=== PATIENT | female | born 1945 | race Caucasian/White ===

== ENCOUNTER 2024-04-09 10:53 | Emergency (ER) | payer MEDICARE, OTHER ==
[~2024-04-09] VITALS: Ht 167.6 cm; Wt 80.0 kg
[2024-04-09] MEDS: HYDROcodone-ACET 10/325MG TAB PO ONE (12:15)
[2024-04-09 12:18] VITALS: PULSE 83; RESP 13; O2SAT 95
[2024-04-09 12:33] LABS: Urine Bacteria FEW /hpf (None Seen); Urine Blood Negative /uL (Negative); Urine Clarity Clear (Clear); Urine Protein, UAD Negative (Negative); Urine Specific Gravity 1.006 (1.001-1.035); Urine Urobilinogen Normal (Negative); Urine WBC 1 /hpf (0 - 5); Urine pH 6.5 (5.0-9.0)
[2024-04-09 12:34] LABS: Urine Color Light Yellow (Yellow)
[2024-04-09] MEDS ORDERED: ZOFR4T PO (13:33)
[2024-04-09] MEDS ORDERED: HYDR-4902 PO (13:33)
[2024-04-09 15:24] VITALS: BP 153/87; PULSE 80; RESP 20; TEMP 98.4; O2SAT 96
== END 2024-04-09 15:10 | disposition home or self-care (01) ==
LOC: EDBD 10:53 → ER 11:03
DX: S06.0X0A Concussion without loss of consciousness, initial encounter (principal); S30.0XXA Contusion of lower back and pelvis, initial encounter; S00.83XA Contusion of other part of head, initial encounter; Z88.0 Allergy status to penicillin; Z88.2 Allergy status to sulfonamides; W18.39XA Other fall on same level, initial encounter; Y93.89 Activity, other specified; Y92.098 Other place in other non-institutional residence as the place of occurrence of the external cause; Y99.8 Other external cause status
CPT/HCPCS: 70450; 72100; 72220; 81001